=== PATIENT | male | born 1965 | race Caucasian/White ===

== ENCOUNTER 2020-05-19 11:14 | Emergency (ER) | payer OTHER ==
[~2020-05-19] VITALS: Ht 175.3 cm; Wt 89.4 kg
[2020-05-19 11:20] VITALS: BP 128/76
--- NOTE | 2020-05-19 12:33 | NUR ---
DR. SAENZ SPEAKING W/ PT AT THIS TIME
--- NOTE | 2020-05-19 12:33 | NUR ---
COVID SWAB COLLECTED AND WALKED TO LAB W/ PAPERWORK
[2020-05-19 12:40] VITALS: BP 128/76
--- NOTE | 2020-05-19 12:40 | NUR ---
Patient discharged with v/s stable. Written and verbal after care instructions given and explained. Patient verbalized understanding. Ambulatory with steady gait. All questions addressed prior to discharge. Advised to follow up with PMD.
--- NOTE | 2020-05-20 15:01 | NUR ---
Covid results received from lab. Results = NEGATIVE. Hard copy requested from lab and placed in infection controls mailbox.
== END 2020-05-19 12:40 | disposition home or self-care (01) ==
LOC: MED 11:14
DX: I51.9 Heart disease, unspecified (principal); G47.33 Obstructive sleep apnea (adult) (pediatric); Z20.828 Contact with and (suspected) exposure to other viral communicable diseases; Z88.1 Allergy status to other antibiotic agents; Z88.5 Allergy status to narcotic agent; Z88.6 Allergy status to analgesic agent; Z95.0 Presence of cardiac pacemaker
CPT/HCPCS: 99283; U0003